=== PATIENT | male | born 1955 | race Caucasian/White ===

== ENCOUNTER 2022-07-15 11:13 | Observation (INO) ==
[2022-07-15] MEDS ORDERED: LORazepam 2 MG/1 ML VIAL ONE ×3 (11:16→11:41)
[2022-07-15] MEDS ORDERED: HALOPERIDOL LACTATE 5 MG/ML 1 ML VIAL ONE ×2 (11:25→11:29)
[2022-07-15] MEDS ORDERED: diphenhydrAMINE 50 MG/ML VIAL ONE (11:25)
[2022-07-15] MEDS ORDERED: KETAMINE HCL INJ 50 MG/ML 10 ML VIAL ONE (11:35)
[2022-07-15] MEDS ORDERED: LORazepam 2 MG/1 ML VIAL IV STA ×2 (11:38→12:53)
[2022-07-15] MEDS ORDERED: SODIUM CHLORIDE 0.9% 1000ML 1,000 ML IV SCH (11:45)
[2022-07-15] MEDS ORDERED: RAPID SEQUENCE INDUCTION BAG ONE (11:47)
[2022-07-15] MEDS ORDERED: STAT IV Infusion **Titration per Protocol STA (12:09)
[2022-07-15 12:13] LABS: Basophils # (auto) 0.03 K/uL (0-0.2); Basophils % (auto) 0.4 %; Eosinophils # (auto) 0.02 K/uL (0-0.50); Eosinophils % (auto) 0.3 %; Hematocrit (blood only) 42.4 % (40.1-51.0); Hemoglobin 14.9 g/dl (14.0-18.0); Immature Granulocytes # (auto) 0.03 K/uL (0.00-0.02); Immature Granulocytes % (auto) 0.4 %; Lymphocytes % (auto) 20.8 %; Mean Corpuscular Hemoglobin 30.5 pg (25.0-34.0); Mean Corpuscular Hgb Conc 35.1 g/dL (32.0-36.0); Mean Corpuscular Volume 86.7 fL (80.0-100.0); Mean Platelet Volume 9.2 fL (9.4-12.4); Monocytes # (auto) 0.57 K/uL (0.24-0.82); Monocytes % (auto) 7.9 %; Neutrophils # (auto) 5.05 K/uL (1.4-6.5); Neutrophils % (auto) 70.2 %; Platelet Count 262 K/uL (130-400); RDW Standard Deviation 40.8 fL (36.4-46.3); Red Blood Count 4.89 M/uL (4.63-6.08)
--- NOTE | 2022-07-15 12:16 | XRay Report ---
XR chest 1V portable supine CLINICAL HISTORY: Altered mental status. COMPARISON STUDY: No previous studies for comparison. FINDINGS: Tip of endotracheal tube is 7 mm above the bora. The tube could be withdrawn 2 cm. No pne umothorax is identified on supine exam. No consolidation. Mediastinal contours are within normal limi ts on supine exam. Pulmonary vascular congestion without overt pulmonary edema. IMPRESSION: 1. Tip of endotracheal tube 7 mm above the bora. The tube could be withdrawn 2 cm. 2. Pulmonary vascular congestion without overt pulmonary edema. ACT 112: Negative or not required by law. Electronically signed by: Zachery Yancey M.D. 07/15/2022 12:13 PM
--- NOTE | 2022-07-15 12:21 | CT Scan Report ---
CT OF THE HEAD WITHOUT CONTRAST CLINICAL HISTORY: Altered mental status. COMPARISON STUDY: No previous studies for comparison. TECHNIQUE: Helical axial images of the head were obtained without IV contrast. Automated exposure con trol was utilized for the study. A dose lowering technique was utilized adhering to the principles o f ALARA. FINDINGS: No acute intracranial hemorrhage, midline shift or mass effect is present. The ventricular system is unremarkable. The basal cisterns are patent. No extra-axial collections are present. There are no findings to suggest acute dural sinus thrombosis or acute territorial infarct. No significant calvarial abnormalities are present. Visualized portions of the sinuses and mastoid air cells are brea ar. Secretions within the nasopharynx are related to intubation. IMPRESSION: No acute intracranial findings. ACT 112: Negative or not required by law. Electronically signed by: Zachery Yancey M.D. 07/15/2022 12:20 PM
--- NOTE | 2022-07-15 12:26 | CT Scan Report ---
CT OF THE CERVICAL SPINE WITHOUT CONTRAST CLINICAL HISTORY: Altered mental status. COMPARISON STUDY: No previous studies for comparison. TECHNIQUE: Helical axial images of the cervical spine were obtained without IV contrast. Sagittal a nd coronal reconstructions were viewed. Automated exposure control was utilized for the study. A do se lowering technique was utilized adhering to the principles of ALARA. FINDINGS: Alignment of the cervical spine is anatomic. Vertebral body heights are maintained. No acut e cervical spine fracture or subluxation is present. There is no prevertebral edema. Facet joints are intact. Endotracheal tube is partially imaged. Moderate multilevel degenerative changes are present . IMPRESSION: No acute cervical spine fracture or subluxation. ACT 112: Negative or not required by law. Electronically signed by: Zachrey Yancey M.D. 07/15/2022 12:24 PM
[2022-07-15] MEDS: propofoL 1,000 MG/100 ML VIAL IV SCH (12:33)
[2022-07-15] MEDS: PROPOFOL BOLUS FROM BAG IV PRN ×5 (12:36→13:51)
--- NOTE | 2022-07-15 12:40 | Emergency Department Note ---
History of Present Illness General Chief complaint: Altered Mental Status Stated complaint: seizure Time Seen by Provider: 07/15/22 11:28 Source: family () History of Present Illness Provider complaint: Altered mental status Onset (ago): hour(s) less than 1 66-year-old female presents emergency department for altered mental status. Wi rian is providing history. reports that the patient and her were walking to the football game today and then all of a sudden he reported he did not suffer loss on the right. She reports he became suddenly confused and started to lower himself to the ground. She denies him hitting his head. She states she helped him lower himself to the ground. She states he was then suddenly confused and a gitated. No tonic-clonic jerking per the . No tongue bite or urinary incontinence per the . She reports no drugs or alcohol. No past medical history per the . No medications. Home Medications Medication Instructions Recorded Confirmed Type No Known Home Medications 07/15/22 07/15/22 History Allergies Allergy/AdvReac Type Severity Reaction Status Date / Time No Known Allergies Allergy Unverified 07/15/22 12:56 Past Med/Surg History Medical History (Updated 07/15/22 @ 18:46 by Aris Parrish) No pertinent past medical history Seizure Surgical History No pertinent past surgical history Family History Son Brain malignancy Social History Smoking Status: Never smoker Hx Alcohol Use: Yes Alcohol type: beer Hx Substance Use: Yes Last Used Substance: Unknown Substance Use Type Other:: per report Preferred Language: Estonian Tag Writer Required: No Current Living Situation: Spouse Feels Safe at Home: Yes Assistive Devices: None Review of Systems Unobtainable due to cognitive status Physical Exam Vital Signs Vital Signs - 24 hr 07/15/22 11:34 07/15/22 12:26 07/15/22 12:19 Temperature 35.7 C L Temperature Source Rectal Pulse Rate 87 77 Pulse Rate from SpO2 Sensor Pulse Rhythm Regular Pulse Strength Normal Respiratory Rate 18 23 Respiratory Effort / Characteristics Non-Labored Spontaneous Respiratory Depth Normal Respiratory Pattern Regular Blood Pressure 121/68 Blood Pressure Mean 85 Blood Pressure Position Sitting Pulse Oximetry 100 94 Oxygen Delivery Method Mechanical Vent Fraction of Inspired Oxygen 60 40 SaO2/FiO2 Ratio 235 Sepsis Recent Fever Within 48 Hours No No Sepsis New/Unexplained Change in Mental Status N/A Yes Sepsis Action Taken by Nursing No Action Required Physician Notified End-Tidal CO2 07/15/22 12:24 07/15/22 12:27 07/15/22 12:27 Temperature Temperature Source Pulse Rate 80 85 Pulse Rate from SpO2 Sensor 80 84 Pulse Rhythm Pulse Strength Respiratory Rate 18 18 Respiratory Effort / Characteristics Respiratory Depth Respiratory Pattern Blood Pressure 104/70 Blood Pressure Mean 81 Blood Pressure Position Pulse Oximetry 100 100 Oxygen Delivery Method Mechanical Vent Mechanical Vent Mechanical Vent Fraction of Inspired Oxygen SaO2/FiO2 Ratio Sepsis Recent Fever Within 48 Hours Sepsis New/Unexplained Change in Mental Status Sepsis Action Taken by Nursing End-Tidal CO2 36 35 07/15/22 12:30 07/15/22 12:30 07/15/22 12:40 Temperature Temperature Source Pulse Rate 88 86 Pulse Rate from SpO2 Sensor 88 87 Pulse Rhythm Pulse Strength Respiratory Rate 18 18 Respiratory Effort / Characteristics Respiratory Depth Respiratory Pattern Blood Pressure 102/71 Blood Pressure Mean 81 Blood Pressure Position Pulse Oximetry 100 96 Oxygen Delivery Method Mechanical Vent Mechanical Vent Mechanical Vent Fraction of Inspired Oxygen SaO2/FiO2 Ratio Sepsis Recent Fever Within 48 Hours Sepsis New/Unexplained Change in Mental Status Sepsis Action Taken by Nursing End-Tidal CO2 36 38 07/15/22 12:45 07/15/22 12:45 07/15/22 12:50 Temperature Temperature Source Pulse Rate 92 H 95 H Pulse Rate from SpO2 Sensor 92 H 95 H Pulse Rhythm Pulse Strength Respiratory Rate 21 21 Respiratory Effort / Characteristics Respiratory Depth Respiratory Pattern Blood Pressure 102/71 Blood Pressure Mean 81 Blood Pressure Position Pulse Oximetry 95 95 Oxygen Delivery Method Mechanical Vent Mechanical Vent Mechanical Vent Fraction of Inspired Oxygen SaO2/FiO2 Ratio Sepsis Recent Fever Within 48 Hours Sepsis New/Unexplained Change in Mental Status Sepsis Action Taken by Nursing End-Tidal CO2 35 33 07/15/22 13:00 07/15/22 13:01 07/15/22 13:01 Temperature Temperature Source Pulse Rate 85 90 Pulse Rate from SpO2 Sensor 86 91 H Pulse Rhythm Pulse Strength Respiratory Rate Respiratory Effort / Characteristics Respiratory Depth Respiratory Pattern Blood Pressure 112/89 Blood Pressure Mean 96 Blood Pressure Position Pulse Oximetry 94 100 Oxygen Delivery Method Mechanical Vent Mechanical Vent Mechanical Vent Fraction of Inspired Oxygen SaO2/FiO2 Ratio Sepsis Recent Fever Within 48 Hours Sepsis New/Unexplained Change in Mental Status Sepsis Action Taken by Nursing End-Tidal CO2 52 Physical Exam GENERAL: Patient is thrashing around the bed screaming trying to bite staff and try to hit staff. HENT: Exam performed. - Head: Normocephalic and atraumatic. - Right Ear: External ear normal. No mastoid tenderness. - Left Ear: External ear normal. No mastoid tenderness. - Mouth/Throat: The oropharynx is clear and moist. No trismus in the jaw. No dental abscesses or uvula swelling. No oropharyngeal exudate or tonsillar abscesses. EYES: Conjunctivae and EOM are normal. Pupils are equal, round, and reactive to light. Right eye exhibits no discharge. Left eye exhibits no discharge. No scleral icterus. NECK: Normal range of motion.No JVD present. CV: Tachycardic rate, regular rhythm, normal heart sounds and intact distal pulses. There is no peripheral edema. Palpable radial pulses bue. PULM/CHEST: Rhonchi bilaterally. ABD: The abdomen is soft. NEURO: Motor and sensation grossly intact. SKIN: Diaphoretic. Procedures Intubation sedative: Versed paralytic: Rocuronium Mg Given: 70 Laryngoscope: other (glide scope) ET Tube Size: 7.5 ET Tube Uncuffed: Yes Tube Secured Depth (cm): 26 Tube Secured Location: lips Tube Placement Confirmation: visualized tube passing through cords, equal breath sounds bilaterally, no breath sounds over epigastrium and confirmation by capnometry Patient Tolerated Procedure: well Additional Comments: ETT was pulled back 2 cm after reviewing on post intubation chest x-ray Course Course 1128: The patient was evaluated in room B4. A complete history and physical exam was performed Cardiac monitoring: An order was placed for continuous cardiac monitoring. The monitor shows a rate of 110 with sinus tachycardia rhythm Patient is thrashing in the bed screaming trying to bite staff. Patient was attempted to be down with multiple doses of IM Ativan, multiple doses of IM Haldol, and IM Benadryl. None of this seemed to calm the patient down the patient was still severely agitated trying to break through four-point restraints and trying to bite staff. Patient was diaphoretic. Given the sudden onset of the patient's symptoms as reported per the there is high concern for intracerebral hemorrhage. Decision was made to intubate the patient for safety and to secure his airway prior to CT scan or rule out intracerebral hemorrhage. See procedure note. 1239: Patient is sedated on propofol and intubated. CT of the head viewed by me is within normal limits 1315: Vital signs stable on ventilator. CT of the head and C-spine within normal limits. Alcohol negative. Patient was evaluated by Dr. Max ICU at bedside. He states he will admit the patient to the ICU and obtain a stat EEG as well as MRI. Dr. Huffman [facility] hospitalist team was made aware. Administered Medications Propofol (Diprivan) 1,000 mg in 100 mls @ 4.14 mls/hr IV .Q24H MARIA D; Protocol Stop: 07/18/22 12:14 Last Titration: 07/15/22 16:35 Dose: 0 mcg/kg/min, 0 mls/hr Documented By: Titration: 07/15/22 16:21 Dose: 10 mcg/kg/min, 4.1 mls/hr Documented By: Titration: 07/15/22 16:15 Dose: 20 mcg/kg/min, 8.3 mls/hr Documented By: Titration: 07/15/22 16:00 Dose: 25 mcg/kg/min, 10.4 mls/hr Documented By: Titration: 07/15/22 15:50 Dose: 30 mcg/kg/min, 12.4 mls/hr Documented By: Titration: 07/15/22 15:42 Dose: 35 mcg/kg/min, 14.5 mls/hr Documented By: Titration: 07/15/22 15:10 Dose: 40 mcg/kg/min, 16.6 mls/hr Documented By: Titration: 07/15/22 14:23 Dose: 44.93 mcg/kg/min, 18.6 mls/hr Documented By: Titration: 07/15/22 13:57 Dose: 35.99 mcg/kg/min, 14.9 mls/hr Documented By: Titration: 07/15/22 13:28 Dose: 30 mcg/kg/min, 12.4 mls/hr Documented By: Titration: 07/15/22 13:06 Dose: 25 mcg/kg/min, 10.4 mls/hr Documented By: Admin: 07/15/22 12:33 Dose: 20 mcg/kg/min, 8.3 mls/hr Documented By: HARRISON Co-signed By: RUTH Sodium Chloride (Nss 1000ml) 1,000 mls @ 80 mls/hr IV .[id number] MARIA D Stop: 08/14/22 15:08 Last Admin: 07/15/22 15:18 Dose: 80 mls/hr Documented By: KELLI Miscellaneous (Icu Electrolyte Replacement Protocol) 1 each N/A BID@,18 [facility]; Protocol Stop: 07/22/22 17:59 Last Admin: 07/15/22 18:41 Dose: 1 each Documented By: KELLI Propofol (Propofol Bolus From Bag) 20 mg IV Q5M PRN PRN Reason: Sedation Stop: 07/18/22 12:14 Last Admin: 07/15/22 13:51 Dose: 20 mg Documented By: RUTH Co-signed By: STEVIE Admin: 07/15/22 13:28 Dose: 20 mg Documented By: RUTH Co-signed By: HARRISON Admin: 07/15/22 13:01 Dose: 20 mg Documented By: HARRISON Co-signed By: RUTH Admin: 07/15/22 12:48 Dose: 20 mg Documented By: HARRISON Co-signed By: RUTH Admin: 07/15/22 12:36 Dose: 20 mg Documented By: HARRISON Co-signed By: RUTH Discontinued Medications Diphenhydramine HCl (Diphenhydramine 50 Mg/Ml Vial) Confirm Administered Dose 50 mg .ROUTE .STK-MED ONE Stop: 07/15/22 11:26 Last Admin: 07/15/22 11:20 Dose: 50 mg Documented By: ELIE Fentanyl Citrate (Fentanyl Citrate 100 Mcg/2 Ml Vial) 25 mcg IV Q30M PRN PRN Reason: Agitation Stop: 07/29/22 13:18 Last Admin: 07/15/22 14:50 Dose: 25 mcg Documented By: Admin: 07/15/22 13:25 Dose: 25 mcg Documented By: RUTH Gadobutrol (Gadobutrol 65ml Vial) 6 ml IV ONCE ONE Stop: 07/15/22 14:55 Last Admin: 07/15/22 14:36 Dose: 6 ml Documented By: GABRIELA Haloperidol Lactate (Haloperidol Lactate 5 Mg/Ml 1 Ml Vial) Confirm Administered Dose 5 mg .ROUTE .STK-MED ONE Stop: 07/15/22 11:26 Last Admin: 07/15/22 11:20 Dose: 5 mg Documented By: ELIE Haloperidol Lactate (Haloperidol Lactate 5 Mg/Ml 1 Ml Vial) Confirm Administered Dose 5 mg .ROUTE .STK-MED ONE Stop: 07/15/22 11:30 Last Admin: 07/15/22 11:37 Dose: 5 mg Documented By: ELIE Sodium Chloride (Nss 1000ml) 1,000 mls @ 999 mls/hr IV .Q1H1M MARIA D Stop: 07/15/22 12:45 Last Infusion: 07/15/22 14:57 Dose: 0 mls/hr Documented By: Admin: 07/15/22 12:34 Dose: 125 mls/hr Documented By: HARRISON Ketamine HCl (Ketamine Hcl Inj 50 Mg/Ml 10 Ml Vial) Confirm Administered Dose 500 mg .ROUTE .STK-MED ONE Stop: 07/15/22 11:36 Last Admin: 07/15/22 12:56 Dose: Not Given Documented By: HARRISON Lorazepam (Lorazepam 2 Mg/1 Ml Vial) Confirm Administered Dose 2 mg .ROUTE .STK- MED ONE Stop: 07/15/22 11:17 Last Admin: 07/15/22 11:15 Dose: 2 mg Documented By: ELIE Lorazepam (Lorazepam 2 Mg/1 Ml Vial) Confirm Administered Dose 4 mg .ROUTE .STK- MED ONE Stop: 07/15/22 11:36 Last Admin: 07/15/22 11:50 Dose: 4 mg Documented By: ELIE Lorazepam (Lorazepam 2 Mg/1 Ml Vial) 2 mg IV NOW STA; Protocol Stop: 07/15/22 11:39 Last Admin: 07/15/22 11:50 Dose: 2 mg Documented By: ELIE Lorazepam (Lorazepam 2 Mg/1 Ml Vial) Confirm Administered Dose 2 mg .ROUTE .STK- MED ONE Stop: 07/15/22 11:42 Last Admin: 07/15/22 11:51 Dose: Not Given Documented By: ELIE Lorazepam (Lorazepam 2 Mg/1 Ml Vial) 1 mg IV NOW STA; Protocol Stop: 07/15/22 12:54 Last Admin: 07/15/22 12:55 Dose: 1 mg Documented By: HARRISON Miscellaneous (Rapid Sequence Induction Bag) Confirm Administered Dose 1 each .ROUTE .STK-MED ONE Stop: 07/15/22 11:48 Last Admin: 07/15/22 12:55 Dose: 1 each Documented By: HARRISON Gonzalez (Stat Iv Infusion Titration Per Protocol) 1 each N/A NOW STA Stop: 07/15/22 12:10 Last Admin: 07/15/22 16:10 Dose: Not Given Documented By: KELLI Critical Care Time Critical Care Time: Yes Total Critical Care Time: 56 I have personally spent greater than 56 minutes of critical care time in the direct management of this patient. This includes bedside care, interpretation of diagnostic studies, and testing, discussion with consultants, patient, and family members, and other required patient management activities. This 56 minutes is in excess of all separately billable procedures. Medical Decision Making Laboratory Data Result diagrams: 07/15/22 11:59 07/15/22 15:54 Lab Results 07/15/22 07/15/22 07/15/22 Range/Units 11:59 11:59 11:59 WBC 7.20 (4.8-10.8) K/ul RBC 4.89 (4.63-6.08) M/uL Hgb 14.9 (14.0-18.0) g/dl Hct 42.4 (40.1-51.0) % MCV 86.7 (80.0-100.0) fL MCH 30.5 (25.0-34.0) pg MCHC 35.1 (32.0-36.0) g/dL RDW Std Deviation 40.8 (36.4-46.3) fL RDW Coeff of Melita 13.0 (11.5-14.5) % Plt Count 262 (130-400) K/uL MPV 9.2 L (9.4-12.4) fL Immature Gran % (Auto) 0.4 % Neut % (Auto) 70.2 % Lymph % (Auto) 20.8 % [place] % (Auto) 7.9 % Eos % (Auto) 0.3 % Baso % (Auto) 0.4 % Neut # (Auto) 5.05 (1.4-6.5) K/uL Lymph # (Auto) 1.50 (1.2-3.4) K/uL [place] # (Auto) 0.57 (0.24-0.82) K/uL Eos # (Auto) 0.02 (0-0.50) K/uL Baso # (Auto) 0.03 (0-0.2) K/uL Immature Gran # (Auto) 0.03 H (0.00-0.02) K/uL VBG pH (7.36-7.41) VBG pCO2 (38-50) mmHg VBG pO2 mmHg VBG HCO3 mmol/L VBG O2 Saturation % VBG Base Excess mEq/L Sodium 139 (136-145) mmol/L Potassium 3.0 L (3.5-5.1) mmol/L Chloride 102 (98-107) mmol/L Carbon Dioxide 17 L (21-32) mmol/L Anion Gap 20 H (3-11) BUN 20 (6-23) mg/dl Creatinine 1.42 H (0.6-1.4) mg/dl Est Cr Clr Drug Dosing 50.6 ml/min Est GFR ( Amer) 59.6 ml/min Est GFR (Non-Af Amer) 51.5 ml/min BUN/Creatinine Ratio 14.1 (10-20) Glucose 175 H (70-99(Fasting)) mg/dl Calcium 9.3 (8.5-10.1) mg/dl Total Bilirubin 1.2 H (0.2-1.0) mg/dl AST 22 (13-39) U/L ALT 15 (7-52) U/L Alkaline Phosphatase 78 (34-104) U/L Total Protein 7.6 (6.0-8.3) gm/dl Albumin 4.5 (3.4-5.0) gm/dl Globulin 3.1 (2.5-4.0) gm/dl Albumin/Globulin Ratio 1.5 (0.9-2) TSH 3.312 (0.300-4.500) uIu/ml Prolactin ng/ml Urine Color Urine Appearance (Clear) Urine pH (4.5-7.5) Ur Specific [place] (1.000-1.030) Urine Protein (Negative) Urine Glucose (UA) (Negative) Urine Ketones (Negative) Urine Blood (Negative) Urine Nitrite (Negative) Urine Bilirubin (Negative) Urine Urobilinogen (Negative) Ur Leukocyte Esterase (Negative) Urine WBC (Auto) (0-5) /hpf Urine RBC (Auto) (0-4) /hpf U Hyaline Cast (Auto) (0-5) /lpf U Epithel Cells (Auto) (0-5) /lpf Urine Bacteria (Auto) (Negative) Salicylates (3.0-30) mg/dl Urine Opiates Screen (Neg) Ur Methadone, Qual (Neg) Acetaminophen (10-30) ug/ml Urine Barbiturates (Neg) Ur Phencyclidine (PCP) (Neg) U Amphetamin/Meth Scrn (Neg) MDMA (Ecstasy) Screen (Neg) U Benzodiazepines Scrn (Neg) Ur Cocaine Metabolite (Neg) U Marijuana (THC) Screen (Neg) Ethyl Alcohol mg/dL (<10.0) mg/dl SARS-CoV-2, RNA, NAAT (NEGATIVE) 07/15/22 07/15/22 07/15/22 Range/Units 11:59 11:59 11:59 WBC (4.8-10.8) K/ul RBC (4.63-6.08) M/uL Hgb (14.0-18.0) g/dl Hct (40.1-51.0) % MCV (80.0-100.0) fL MCH (25.0-34.0) pg MCHC (32.0-36.0) g/dL RDW Std Deviation (36.4-46.3) fL RDW Coeff of Melita (11.5-14.5) % Plt Count (130-400) K/uL MPV (9.4-12.4) fL Immature Gran % (Auto) % Neut % (Auto) % Lymph % (Auto) % [place] % (Auto) % Eos % (Auto) % Baso % (Auto) % Neut # (Auto) (1.4-6.5) K/uL Lymph # (Auto) (1.2-3.4) K/uL [place] # (Auto) (0.24-0.82) K/uL Eos # (Auto) (0-0.50) K/uL Baso # (Auto) (0-0.2) K/uL Immature Gran # (Auto) (0.00-0.02) K/uL VBG pH (7.36-7.41) VBG pCO2 (38-50) mmHg VBG pO2 mmHg VBG HCO3 mmol/L VBG O2 Saturation % VBG Base Excess mEq/L Sodium (136-145) mmol/L Potassium (3.5-5.1) mmol/L Chloride (98-107) mmol/L Carbon Dioxide (21-32) mmol/L Anion Gap (3-11) BUN (6-23) mg/dl Creatinine (0.6-1.4) mg/dl Est Cr Clr Drug Dosing ml/min Est GFR ( Amer) ml/min Est GFR (Non-Af Amer) ml/min BUN/Creatinine Ratio (10-20) Glucose (70-99(Fasting)) mg/dl Calcium (8.5-10.1) mg/dl Total Bilirubin (0.2-1.0) mg/dl AST (13-39) U/L ALT (7-52) U/L Alkaline Phosphatase (34-104) U/L Total Protein (6.0-8.3) gm/dl Albumin (3.4-5.0) gm/dl Globulin (2.5-4.0) gm/dl Albumin/Globulin Ratio (0.9-2) TSH (0.300-4.500) uIu/ml Prolactin 41.88 ng/ml Urine Color Urine Appearance (Clear) Urine pH (4.5-7.5) Ur Specific [place] (1.000-1.030) Urine Protein (Negative) Urine Glucose (UA) (Negative) Urine Ketones (Negative) Urine Blood (Negative) Urine Nitrite (Negative) Urine Bilirubin (Negative) Urine Urobilinogen (Negative) Ur Leukocyte Esterase (Negative) Urine WBC (Auto) (0-5) /hpf Urine RBC (Auto) (0-4) /hpf U Hyaline Cast (Auto) (0-5) /lpf U Epithel Cells (Auto) (0-5) /lpf Urine Bacteria (Auto) (Negative) Salicylates < 3.0 L (3.0-30) mg/dl Urine Opiates Screen (Neg) Ur Methadone, Qual (Neg) Acetaminophen < 3 L (10-30) ug/ml Urine Barbiturates (Neg) Ur Phencyclidine (PCP) (Neg) U Amphetamin/Meth Scrn (Neg) MDMA (Ecstasy) Screen (Neg) U Benzodiazepines Scrn (Neg) Ur Cocaine Metabolite (Neg) U Marijuana (THC) Screen (Neg) Ethyl Alcohol mg/dL < 10.0 (<10.0) mg/dl SARS-CoV-2, RNA, NAAT (NEGATIVE) 07/15/22 07/15/22 07/15/22 Range/Units 12:28 12:28 12:30 WBC (4.8-10.8) K/ul RBC (4.63-6.08) M/uL Hgb (14.0-18.0) g/dl Hct (40.1-51.0) % MCV (80.0-100.0) fL MCH (25.0-34.0) pg MCHC (32.0-36.0) g/dL RDW Std Deviation (36.4-46.3) fL RDW Coeff of Melita (11.5-14.5) % Plt Count (130-400) K/uL MPV (9.4-12.4) fL Immature Gran % (Auto) % Neut % (Auto) % Lymph % (Auto) % [place] % (Auto) % Eos % (Auto) % Baso % (Auto) % Neut # (Auto) (1.4-6.5) K/uL Lymph # (Auto) (1.2-3.4) K/uL [place] # (Auto) (0.24-0.82) K/uL Eos # (Auto) (0-0.50) K/uL Baso # (Auto) (0-0.2) K/uL Immature Gran # (Auto) (0.00-0.02) K/uL VBG pH (7.36-7.41) VBG pCO2 (38-50) mmHg VBG pO2 mmHg VBG HCO3 mmol/L VBG O2 Saturation % VBG Base Excess mEq/L Sodium (136-145) mmol/L Potassium (3.5-5.1) mmol/L Chloride (98-107) mmol/L Carbon Dioxide (21-32) mmol/L Anion Gap (3-11) BUN (6-23) mg/dl Creatinine (0.6-1.4) mg/dl Est Cr Clr Drug Dosing ml/min Est GFR ( Amer) ml/min Est GFR (Non-Af Amer) ml/min BUN/Creatinine Ratio (10-20) Glucose (70-99(Fasting)) mg/dl Calcium (8.5-10.1) mg/dl Total Bilirubin (0.2-1.0) mg/dl AST (13-39) U/L ALT (7-52) U/L Alkaline Phosphatase (34-104) U/L Total Protein (6.0-8.3) gm/dl Albumin (3.4-5.0) gm/dl Globulin (2.5-4.0) gm/dl Albumin/Globulin Ratio (0.9-2) TSH (0.300-4.500) uIu/ml Prolactin ng/ml Urine Color Yellow Urine Appearance Clear (Clear) Urine pH 5.0 (4.5-7.5) Ur Specific [place] 1.015 (1.000-1.030) Urine Protein 1+ H (Negative) Urine Glucose (UA) Negative (Negative) Urine Ketones Trace H (Negative) Urine Blood 1+ H (Negative) Urine Nitrite Negative (Negative) Urine Bilirubin Negative (Negative) Urine Urobilinogen Negative (Negative) Ur Leukocyte Esterase Negative (Negative) Urine WBC (Auto) 1-5 (0-5) /hpf Urine RBC (Auto) 0-4 (0-4) /hpf U Hyaline Cast (Auto) 10-30 H (0-5) /lpf U Epithel Cells (Auto) >30 H (0-5) /lpf Urine Bacteria (Auto) Negative (Negative) Salicylates (3.0-30) mg/dl Urine Opiates Screen Neg (Neg) Ur Methadone, Qual Neg (Neg) Acetaminophen (10-30) ug/ml Urine Barbiturates Neg (Neg) Ur Phencyclidine (PCP) Neg (Neg) U Amphetamin/Meth Scrn Neg (Neg) MDMA (Ecstasy) Screen Neg (Neg) U Benzodiazepines Scrn Pos H (Neg) Ur Cocaine Metabolite Neg (Neg) U Marijuana (THC) Screen Pos H (Neg) Ethyl Alcohol mg/dL (<10.0) mg/dl SARS-CoV-2, RNA, NAAT NEGATIVE (NEGATIVE) 07/15/22 Range/Units 13:01 WBC (4.8-10.8) K/ul RBC (4.63-6.08) M/uL Hgb (14.0-18.0) g/dl Hct (40.1-51.0) % MCV (80.0-100.0) fL MCH (25.0-34.0) pg MCHC (32.0-36.0) g/dL RDW Std Deviation (36.4-46.3) fL RDW Coeff of Melita (11.5-14.5) % Plt Count (130-400) K/uL MPV (9.4-12.4) fL Immature Gran % (Auto) % Neut % (Auto) % Lymph % (Auto) % [place] % (Auto) % Eos % (Auto) % Baso % (Auto) % Neut # (Auto) (1.4-6.5) K/uL Lymph # (Auto) (1.2-3.4) K/uL [place] # (Auto) (0.24-0.82) K/uL Eos # (Auto) (0-0.50) K/uL Baso # (Auto) (0-0.2) K/uL Immature Gran # (Auto) (0.00-0.02) K/uL VBG pH 7.29 L (7.36-7.41) VBG pCO2 47 (38-50) mmHg VBG pO2 69 mmHg VBG HCO3 23 mmol/L VBG O2 Saturation 94.2 % VBG Base Excess -4.2 mEq/L Sodium (136-145) mmol/L Potassium (3.5-5.1) mmol/L Chloride (98-107) mmol/L Carbon Dioxide (21-32) mmol/L Anion Gap (3-11) BUN (6-23) mg/dl Creatinine (0.6-1.4) mg/dl Est Cr Clr Drug Dosing ml/min Est GFR ( Amer) ml/min Est GFR (Non-Af Amer) ml/min BUN/Creatinine Ratio (10-20) Glucose (70-99(Fasting)) mg/dl Calcium (8.5-10.1) mg/dl Total Bilirubin (0.2-1.0) mg/dl AST (13-39) U/L ALT (7-52) U/L Alkaline Phosphatase (34-104) U/L Total Protein (6.0-8.3) gm/dl Albumin (3.4-5.0) gm/dl Globulin (2.5-4.0) gm/dl Albumin/Globulin Ratio (0.9-2) TSH (0.300-4.500) uIu/ml Prolactin ng/ml Urine Color Urine Appearance (Clear) Urine pH (4.5-7.5) Ur Specific [place] (1.000-1.030) Urine Protein (Negative) Urine Glucose (UA) (Negative) Urine Ketones (Negative) Urine Blood (Negative) Urine Nitrite (Negative) Urine Bilirubin (Negative) Urine Urobilinogen (Negative) Ur Leukocyte Esterase (Negative) Urine WBC (Auto) (0-5) /hpf Urine RBC (Auto) (0-4) /hpf U Hyaline Cast (Auto) (0-5) /lpf U Epithel Cells (Auto) (0-5) /lpf Urine Bacteria (Auto) (Negative) Salicylates (3.0-30) mg/dl Urine Opiates Screen (Neg) Ur Methadone, Qual (Neg) Acetaminophen (10-30) ug/ml Urine Barbiturates (Neg) Ur Phencyclidine (PCP) (Neg) U Amphetamin/Meth Scrn (Neg) MDMA (Ecstasy) Screen (Neg) U Benzodiazepines Scrn (Neg) Ur Cocaine Metabolite (Neg) U Marijuana (THC) Screen (Neg) Ethyl Alcohol mg/dL (<10.0) mg/dl SARS-CoV-2, RNA, NAAT (NEGATIVE) Imaging Data Radiologist's Impression: Head CT 07/15/22 11:36 CT OF THE HEAD WITHOUT CONTRAST CLINICAL HISTORY: Altered mental status. COMPARISON STUDY: No previous studies for comparison. TECHNIQUE: Helical axial images of the head were obtained without IV contrast. Automated exposure control was utilized for the study. A dose lowering technique was utilized adhering to the principles of ALARA. FINDINGS: No acute intracranial hemorrhage, midline shift or mass effect is present. The ventricular system is unremarkable. The basal cisterns are patent. No extra-axial collections are present. There are no findings to suggest acute dural sinus thrombosis or acute territorial infarct. No significant calvarial abnormalities are present. Visualized portions of the sinuses and mastoid air cells are clear. Secretions within the nasopharynx are related to intubation. IMPRESSION: No acute intracranial findings. ACT 112: Negative or not required by law. Electronically signed by: Zachery Yancey M.D. 07/15/2022 12:20 PM Chest X-Ray 07/15/22 11:37 XR chest 1V portable supine CLINICAL HISTORY: Altered mental status. COMPARISON STUDY: No previous studies for comparison. FINDINGS: Tip of endotracheal tube is 7 mm above the bora. The tube could be withdrawn 2 cm. No pneumothorax is identified on supine exam. No consolidation. Mediastinal contours are within normal limits on supine exam. Pulmonary vascular congestion without overt pulmonary edema. IMPRESSION: 1. Tip of endotracheal tube 7 mm above the bora. The tube could be withdrawn 2 cm. 2. Pulmonary vascular congestion without overt pulmonary edema. ACT 112: Negative or not required by law. Electronically signed by: Zachery Yancey M.D. 07/15/2022 12:[address] 07/15/22 12:04 CT OF THE CERVICAL SPINE WITHOUT CONTRAST CLINICAL HISTORY: Altered mental status. COMPARISON STUDY: No previous studies for comparison. TECHNIQUE: Helical axial images of the cervical spine were obtained without IV contrast. Sagittal and coronal reconstructions were viewed. Automated exposure control was utilized for the study. A dose lowering technique was utilized ad phill to the principles of ALARA. FINDINGS: Alignment of the cervical spine is anatomic. Vertebral body heights are maintained. No acute cervical spine fracture or subluxation is present. There is no prevertebral edema. Facet joints are intact. Endotracheal tube is partially imaged. Moderate multilevel degenerative changes are present. IMPRESSION: No acute cervical spine fracture or subluxation. ACT 112: Negative or not required by law. Electronically signed by: Zachery Yancey M.D. 07/15/2022 12:24 PM Brain MRI 07/15/22 13:07 MRI OF THE BRAIN WITHOUT AND WITH IV CONTRAST SEIZURE PROTOCOL CLINICAL HISTORY: new onset seizure COMPARISON STUDY: Head CT performed earlier today. TECHNIQUE: Utilizing a 1.5 Angie magnet and dedicated coil, multiplanar, multiecho imaging of the brain was performed pre and postcontrast administration. IV administration of 6 mL of Gadavist contrast was uneventful. Thin cut coronal T2 imaging was performed according to seizure protocol. FINDINGS: There are are no foci of restricted diffusion to suggest acute infarct. No acute intracranial hemorrhage, midline shift or mass effect is present. Brain volume is normal. Ventricular system is normal. Basal cisterns are patent. There are no extra-axial collections. Flow-voids for the major intracranial vessels are present. There is no intracranial mass or pathologic enhancement. No significant parenchymal signal abnormality is identified. Mesial temporal lobes are unremarkable. Flow-voids for the major intracranial vessels are present. Secretions within the nasopharynx are related to intubation. IMPRESSION: Unremarkable MRI of the brain. No acute findings. No intracranial mass or pathologic enhancement. ACT 112: Negative or not required by law. Electronically signed by: Zachery Yancey M.D. 07/15/2022 3:15 PM ECG Data Indication: + altered mental status Rate (beats per minute): 91 Rhythm: + normal sinus ECG Intervals/blocks: + Normal QRS, + Normal IN and + Normal QT-c ECG ST segments: + Normal ST segments MDM Narrative 1128: The patient was evaluated in room B4. A complete history and physical exam was performed Cardiac monitoring: An order was placed for continuous cardiac monitoring. The monitor shows a rate of 110 with sinus tachycardia rhythm Patient is thrashing in the bed screaming trying to bite staff. Patient was attempted to be down with multiple doses of IM Ativan, multiple doses of IM Haldol, and IM Benadryl. None of this seemed to calm the patient down the patient was still severely agitated trying to break through four-point restraints and trying to bite staff. Patient was diaphoretic. Given the sudden onset of the patient's symptoms as reported per the there is high concern for intracerebral hemorrhage. Decision was made to intubate the patient for s afety and to secure his airway prior to CT scan or rule out intracerebral hemorrhage. See procedure note. 1239: Patient is sedated on propofol and intubated. CT of the head viewed by me is within normal limits 1315: Vital signs stable on ventilator. CT of the head and C-spine within normal limits. Alcohol negative. Patient was evaluated by Dr. Max ICU at bedside. He states he will admit the patient to the ICU and obtain a stat EEG as well as MRI. Dr. Huffman [facility] hospitalist team was made aware. Impression & Plan Altered mental status, unspecified Discharge Plan Visit Data Chief Complaint: Altered Mental Status Stated Complaint: seizure ED Provider: Aris Parirsh Discharge Problem: Altered mental status, unspecified Patient Disposition: Admitted As Inpatient Discharge Instructions Interventions: ED Discharge Assessment Last Done: 07/15/22 14:37
[2022-07-15 12:41] LABS: Albumin Globulin Ratio 1.5 (0.9-2); Albumin Level 4.5 gm/dl (3.4-5.0); BUN Creatinine Ratio 14.1 (10-20); Bilirubin,Total 1.2 mg/dl (0.2-1.0); Calcium 9.3 mg/dl (8.5-10.1); Creatinine Clr Calc Pharmacy 50.6 ml/min; Est GFR (African American) 59.6 ml/min; Est GFR (Non-African American) 51.5 ml/min; Globulin 3.1 gm/dl (2.5-4.0); Total Protein 7.6 gm/dl (6.0-8.3)
[2022-07-15 12:42] LABS: Acetaminophen < 3 ug/ml (10-30); Salicylate < 3.0 mg/dl (3.0-30)
[2022-07-15 12:49] LABS: Appearance Urine Clear (Clear); Bacteria Urine Automated Negative (Negative); Bilirubin Urine Negative (Negative); Blood Urine 1+ (Negative); Color Urine Yellow; Epithelial Cell Urine Auto >30 /lpf (0-5); Glucose Urine UA Negative (Negative); Ketones Urine Trace (Negative); Leukocyte Esterase Urine Negative (Negative); Nitrite Urine Negative (Negative); Protein Urine 1+ (Negative); RBC Urine Automated 0-4 /hpf (0-4); Specific Gravity Urine 1.015 (1.000-1.030); Urobilinogen Urine Negative (Negative)
[2022-07-15 13:12] LABS: Base Excess VBG -4.2 mEq/L; HCO3 VBG 23 mmol/L; Oxygen Saturation VBG 94.2 %; PCO2 VBG 47 mmHg (38-50); PO2 VBG 69 mmHg; pH VBG 7.29 (7.36-7.41)
[2022-07-15] MEDS: fentaNYL citrate 100 MCG/2 ML VIAL IV PRN ×2 (13:25→14:50)
[2022-07-15 13:29] LABS: Amphetamines+Metham, Urine Neg (Neg); Barbiturates, Urine Neg (Neg); Benzodiazepine, Urine Pos (Neg); Cocaine, Urine Neg (Neg); MDMA (Ecstacy), Urine Neg (Neg); Methadone, Urine Neg (Neg); Opiate, Urine Neg (Neg); Phencyclidine, Urine Neg (Neg)
--- NOTE | 2022-07-15 13:33 | History & Physical Report ---
Date of Service July 15, 2022 Assessment & Plan (1) Seizure: Plan: First episode. No family hx of seizure, though son did pass away from a brain tumor (unk type). - Intubated in ER for combativeness, then airway protection -> Admit to ICU - MRI brain seizure protocol - UDS pending - EEG pending - Seizure precautions - Discussed with ICU attending (2) DVT prophylaxis: Plan: Heparin 5,000 units SQ Q12h History of Present Illness Primary Care Provider: NO PCP 66yo M w/ no major PMH who presents with likely seizure. Patient is intubated and heavily sedated, so we have no information from him, but his reports that he was in his normal state of health today. They were walking toward the stadium [place] the [place], and he reported that he smelled something. His asked if he wanted to sit down, and he said no, that they should get to their seats. However, he then took a few more steps and started to fall to the ground. She lowered him slowly to the ground (does not appear to have struck his head), and within a few seconds, he had about 1 minute's worth of generalized tonic/clonic behavior. When EMS arrived, he was awake, calm, but confused. In the ambulance to the hospital, he had an IV inserted and became very combative and aggressive. In the ER, he was given Ativan, Haldol, and Benadryl and then intubated for airway protection. Allergies Allergy/AdvReac Type Severity Reaction Status Date / Time No Known Allergies Allergy Unverified 07/15/22 12:56 Home Medications Medication Instructions Recorded Confirmed Type No Known Home Medications 07/15/22 07/15/22 History Past Med/Surg History Medical History (Updated 07/15/22 @ 13:29 by Miguel Huffman MD) No pertinent past medical history Seizure Surgical History No pertinent past surgical history Family History Son Brain malignancy Social History Smoking Status: Unknown if ever smoked Feels Safe at Home: Yes Review of Systems Review of Systems: Unobtainable due to cognitive status and Unobtainable due to endotracheal tube Physical Exam Constitutional: WD/WN, vitals as above + acute distress Eyes: no conjunctival abnormality and + EOM not intact (Cannot do, due to intubation/sedation) ENMT: external ear and nose normal, oropharynx normal Neck: trachea midline, no thyromegaly normal visual inspection Respiratory: normal respiratory effort, lungs clear to auscultation no respiratory distress Intubated Cardiovascular: RRR, no murmur, no edema Gastrointestinal (Abdomen): Inspection/Auscultation: abdomen normal to inspection; abdomen not distended Percussion/Palpation: abdomen soft; abdomen nontender, no guarding and abdomen not rigid Musculoskeletal: No gross MSK deformities noted. Skin: no rashes, warm and dry Neurologic: + does not move all extremities and + not awake Psychiatric: Orientation: + not alert and + uncooperative Results & Data Results & Data ([facility]) Vital Signs (Past 12 Hours) Vital Signs Temp Pulse Resp BP Pulse Ox O2 Del Method FiO2 07/15/22 12:19 35.7 C L 77 23 121/68 94 Mechanical Vent 40 07/15/22 12:26 87 18 100 60 Code Status & VTE Plan VTE Prophylaxis Plan VTE Prophylaxis will be ordered: Yes PG Care Time/CCT Total # of Minutes Spent Total Time Spent with Patient: Total time spent is greater than 50% in coordination of care (as documented) at patient's floor/unit and/or counseling patient: Coding Level of Care Code 54076 Initial Inpt Care Lvl 3 Diagnoses Seizure R56.9 DVT prophylaxis Z29.9
[2022-07-15] MEDS ORDERED: GADOBUTROL 65ML VIAL IV ONE (14:54)
[2022-07-15] MEDS ORDERED: ONDANSETRON INJ 2 MG/ML 2 ML VIAL IV PRN (15:09)
[2022-07-15] MEDS ORDERED: ICU PROTOCOL FOR HYPERGLYCEMIA PRN (15:09)
[2022-07-15] MEDS ORDERED: fentaNYL citrate 100 MCG/2 ML VIAL IV PRN (15:09)
[2022-07-15] MEDS ORDERED: ROCURONIUM BROMIDE 10 MG/ML 5 ML VIAL IV ONE (15:12)
[2022-07-15] MEDS ORDERED: MIDAZOLAM HCL 5 MG/ML VIAL IV ONE (15:12)
--- NOTE | 2022-07-15 15:17 | Magnetic Resonance Report ---
MRI OF THE BRAIN WITHOUT AND WITH IV CONTRAST SEIZURE PROTOCOL CLINICAL HISTORY: new onset seizure COMPARISON STUDY: Head CT performed earlier today. TECHNIQUE: Utilizing a 1.5 Angie magnet and dedicated coil, multiplanar, multiecho imaging of the br ain was performed pre and postcontrast administration. IV administration of 6 mL of Gadavist contras t was uneventful. Thin cut coronal T2 imaging was performed according to seizure protocol. FINDINGS: There are are no foci of restricted diffusion to suggest acute infarct. No acute intracrani al hemorrhage, midline shift or mass effect is present. Brain volume is normal. Ventricular system is normal. Basal cisterns are patent. There are no extra-axial collections. Flow-voids for the major in tracranial vessels are present. There is no intracranial mass or pathologic enhancement. No significa nt parenchymal signal abnormality is identified. Mesial temporal lobes are unremarkable. Flow-voids f or the major intracranial vessels are present. Secretions within the nasopharynx are related to intub ation. IMPRESSION: Unremarkable MRI of the brain. No acute findings. No intracranial mass or pathologic enh ancement. ACT 112: Negative or not required by law. Electronically signed by: Zachery Yancey M.D. 07/15/2022 3:15 PM
[2022-07-15] MEDS: SODIUM CHLORIDE 0.9% 1000ML 1,000 ML IV SCH (15:18)
--- NOTE | 2022-07-15 15:37 | Critical Care Consultation ---
Date of Consultation July 15, 2022 Assessment & Plan (1) Altered mental status, unspecified: Reason Critically Ill: 66-year-old male without significant past medical history who presents after altered mental status. PLAN: Neuro: Altered mental status -Rule out seizure activity -Unclear significance of marijuana positive on UDS -Hypokalemia associated weakness Resp: Intubation to facilitate medical evaluation -Move towards extubation Fluids/Renal: Elevated serum creatinine -Probable prerenal in origin: Hyaline casts and trace ketones noted on UA -Recheck in a.m. Hypokalemia -Recheck -ICU electrolyte protocol ID: No indication for anti-infectives at this time GI/Nutrition: N.p.o. Heme: DVT prophylaxis: Heparin subcu Endocrine: ICU hyperglycemia protocol Hyperglycemia -Check A1c Vascular access: Peripheral IVs Code Status: Full code Disposition: ICU (2) Elevated serum creatinine: (3) Hypokalemia: (4) Marijuana use: (5) Hyperglycemia: History of Present Illness Reason for Consultation: Possible seizure-like activity. Intubated in presumptive post ictal. To facilitate medical work-up secondary to patient combativeness. Requesting Physician: Miguel Huffman MD Attending Physician: Miguel Huffman MD History of Present Illness Patient is a 66-year-old male without significant past medical history. History is supplied from the patient's . 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 He denies following up with a medical provider regularly. There is no past medical history. Family history is largely unremarkable with the exception that he had a male child at age 15 secondary to a brain tumor. She denies that the patient smokes, he does occasionally drink, there is no reported daily consumption of alcohol and no history of alcohol withdrawal symptoms. Patient had been in his normal state of health and they were walking to the [employer] game which the patient complained of a sudden onset of an abnormal smell and then reported he did not feel well and progressively became weak and was unable to stand, patient's helped lower the patient to the ground. In the emergency department the patient would be intermittently confused and somewhat combative preventing safe medical evaluation. He was intubated to facilitate work-up. CT scan was reviewed which was unremarkable. MRI rule out seizure was reviewed which was unremarkable. EEG has been obtained. Allergies Allergy/AdvReac Type Severity Reaction Status Date / Time No Known Allergies Allergy Unverified 07/15/22 12:56 Home Medications Medication Instructions Recorded Confirmed Type No Known Home Medications 07/15/22 07/15/22 History Patient History Medical History (Updated 07/15/22 @ 15:48 by Oneil Rader DO) No pertinent past medical history Seizure Surgical History No pertinent past surgical history Family History Son Brain malignancy Social History Smoking Status: Unknown if ever smoked Feels Safe at Home: Yes Review of Systems Review of Systems: Unobtainable due to endotracheal tube Physical Exam Physical Exam: General: Sedated. nontoxic. Skin: Warm, dry, Head: Atraumatic Ears, nose, mouth and throat: airway obscured by endotracheal tube Cardiovascular: Normal peripheral perfusion Respiratory: Ventilator settings reviewed Gastrointestinal: Non distended Musculoskeletal: No deformity Results & Data Results & [facility] ([facility]) Vital Signs (Past 12 Hours) Vital Signs Temp Pulse Resp BP Pulse Ox O2 Del Method FiO2 07/15/22 15:32 57 L 18 100 30 07/15/22 15:22 Mechanical Vent 40 07/15/22 15:03 55 L 19 107/70 100 Mechanical Vent 30 07/15/22 15:01 56 L 19 117/72 100 Mechanical Vent 30 07/15/22 14:57 61 19 111/71 100 Mechanical Vent 30 07/15/22 13:30 72 25 H 100 Mechanical Vent 07/15/22 13:30 110/71 Mechanical Vent 07/15/22 13:20 75 18 95 Mechanical Vent 07/15/22 13:15 102/73 Mechanical Vent 07/15/22 13:15 75 18 97 Mechanical Vent 07/15/22 13:10 75 21 100 Mechanical Vent 07/15/22 13:01 112/89 Mechanical Vent 07/15/22 13:01 90 100 Mechanical Vent 07/15/22 13:00 85 94 Mechanical Vent 07/15/22 12:50 95 H 21 95 Mechanical Vent 07/15/22 12:45 102/71 Mechanical Vent 07/15/22 12:45 92 H 21 95 Mechanical Vent 07/15/22 12:40 86 18 96 Mechanical Vent 07/15/22 12:30 88 18 100 Mechanical Vent 07/15/22 12:30 102/71 Mechanical Vent 07/15/22 12:27 85 18 100 Mechanical Vent 07/15/22 12:27 104/70 Mechanical Vent 07/15/22 12:24 80 18 100 Mechanical Vent 07/15/22 12:19 35.7 C L 77 23 121/68 94 Mechanical Vent 40 07/15/22 12:26 87 18 100 60 Critical Care Results & Data Vital Signs (Past 12 Hours) Vital Signs Temp Pulse Resp BP Pulse Ox O2 Del Method FiO2 07/15/22 15:32 57 L 18 100 30 07/15/22 15:22 Mechanical Vent 40 07/15/22 15:03 55 L 19 107/70 100 Mechanical Vent 07/15/22 15:01 56 L 19 117/72 100 Mechanical Vent 07/15/22 14:57 61 19 111/71 100 Mechanical Vent 30 07/15/22 13:30 72 25 H 100 Mechanical Vent 07/15/22 13:30 110/71 Mechanical Vent 07/15/22 13:20 75 18 95 Mechanical Vent 07/15/22 13:15 102/73 Mechanical Vent 07/15/22 13:15 75 18 97 Mechanical Vent 07/15/22 13:10 75 21 100 Mechanical Vent 07/15/22 13:01 112/89 Mechanical Vent 07/15/22 13:01 90 100 Mechanical Vent 07/15/22 13:00 85 94 Mechanical Vent 07/15/22 12:50 95 H 21 95 Mechanical Vent 07/15/22 12:45 102/71 Mechanical Vent 07/15/22 12:45 92 H 21 95 Mechanical Vent 07/15/22 12:40 86 18 96 Mechanical Vent 07/15/22 12:30 88 18 100 Mechanical Vent 07/15/22 12:30 102/71 Mechanical Vent 07/15/22 12:27 85 18 100 Mechanical Vent 07/15/22 12:27 104/70 Mechanical Vent 07/15/22 12:24 80 18 100 Mechanical Vent 07/15/22 12:19 35.7 C L 77 23 121/68 94 Mechanical Vent 40 07/15/22 12:26 87 18 100 60 Lab & Micro Results (Past 24 Hours) RBC 4.89 M/uL (4.63-6.08) 07/15/22 WBC 7.20 K/ul (4.8-10.8) 07/15/22 Hgb 14.9 g/dl (14.0-18.0) 07/15/22 Hct 42.4 % (40.1-51.0) 07/15/22 MCV 86.7 fL (80.0-100.0) 07/15/22 MCH 30.5 pg (25.0-34.0) 07/15/22 MCHC 35.1 g/dL (32.0-36.0) 07/15/22 RDW Standard Deviation 40.8 fL (36.4-46.3) 07/15/22 RDW Coefficient of Variation 13.0 % (11.5-14.5) 07/15/22 Plt Count 262 K/uL (130-400) 07/15/22 MPV 9.2 fL (9.4-12.4) L 07/15/22 Neutrophils (%) (Auto) 70.2 % 07/15/22 Lymphocytes (%) (Auto) 20.8 % 07/15/22 Monocytes # (Auto) 0.57 K/uL (0.24-0.82) 07/15/22 Eosinophils # (Auto) 0.02 K/uL (0-0.50) 07/15/22 Immature Granulocyte % (Auto) 0.4 % 07/15/22 Neutrophils # (Auto) 5.05 K/uL (1.4-6.5) 07/15/22 Lymphocytes # (Auto) 1.50 K/uL (1.2-3.4) 07/15/22 Monocytes # (Auto) 0.57 K/uL (0.24-0.82) 07/15/22 Eosinophils # (Auto) 0.02 K/uL (0-0.50) 07/15/22 Basophils # (Auto) 0.03 K/uL (0-0.2) 07/15/22 Immature Granulocyte # (Auto) 0.03 K/uL (0.00-0.02) H 07/15 Na 139 mmol/L (136-145) 07/15/22 K 3.0 mmol/L (3.5-5.1) L 07/15/22 Cl 102 mmol/L (98-107) 07/15/22 CO2 17 mmol/L (21-32) L 07/15/22 Anion Gap 20 (3-11) H 07/15/22 BUN 20 mg/dl (6-23) 07/15/22 Creatinine 1.42 mg/dl (0.6-1.4) H 07/15/22 Estimated GFR ( Amer) 59.6 ml/min 07/15/22 Estimated GFR (Non-Af Amer) 51.5 ml/min 07/15/22 BUN/Creatinine Ratio 14.1 (10-20) 07/15/22 Glu 175 mg/dl (70-99(Fasting)) H 07/15/22 Ca 9.3 mg/dl (8.5-10.1) 07/15/22 Total Bilirubin 1.2 mg/dl (0.2-1.0) H 07/15/22 AST 22 U/L (13-39) 07/15/22 ALT 15 U/L (7-52) 07/15/22 Alkaline Phosphatase 78 U/L (34-104) 07/15/22 TP 7.6 gm/dl (6.0-8.3) 07/15/22 Albumin 4.5 gm/dl (3.4-5.0) 07/15/22 Globulin 3.1 gm/dl (2.5-4.0) 07/15/22 Albumin/Globulin Ratio 1.5 (0.9-2) 07/15/22 Calcium Level 9.3 mg/dl (8.5-10.1) 07/15/22 11:59 Venous Blood pH 7.29 (7.36-7.41) L 07/15/22 13:01 Venous Blood Partial Pressure CO2 47 mmHg (38-50) 07/15/22 13:0 1 Venous Blood Partial Pressure O2 69 mmHg 07/15/22 13:01 Venous Blood HCO3 23 mmol/L 07/15/22 13:01 Venous Blood Base Excess -4.2 mEq/L 07/15/22 13:01 Venous Blood Oxygen Saturation 94.2 % 07/15/22 13:01 Diagnostic Findings (Past 24 Hours) Head CT 07/15/22 11:36 CT OF THE HEAD WITHOUT CONTRAST CLINICAL HISTORY: Altered mental status. COMPARISON STUDY: No previous studies for comparison. TECHNIQUE: Helical axial images of the head were obtained without IV contrast. Automated exposure control was utilized for the study. A dose lowering technique was utilized adhering to the principles of ALARA. FINDINGS: No acute intracranial hemorrhage, midline shift or mass effect is present. The ventricular system is unremarkable. The basal cisterns are patent. No extra-axial collections are present. There are no findings to suggest acute dural sinus thrombosis or acute territorial infarct. No significant calvarial abnormalities are present. Visualized portions of the sinuses and mastoid air cells are clear. Secretions within the nasopharynx are related to intubation. IMPRESSION: No acute intracranial findings. ACT 112: Negative or not required by law. Electronically signed by: Zachery Yancey M.D. 07/15/2022 12:20 PM Chest X-Ray 07/15/22 11:37 XR chest 1V portable supine CLINICAL HISTORY: Altered mental status. COMPARISON STUDY: No previous studies for comparison. FINDINGS: Tip of endotracheal tube is 7 mm above the bora. The tube could be withdrawn 2 cm. No pneumothorax is identified on supine exam. No consolidation. Mediastinal contours are within normal limits on supine exam. Pulmonary vascular congestion without overt pulmonary edema. IMPRESSION: 1. Tip of endotracheal tube 7 mm above the bora. The tube could be withdrawn 2 cm. 2. Pulmonary vascular congestion without overt pulmonary edema. ACT 112: Negative or not required by law. Electronically signed by: Zachery Yancey M.D. 07/15/2022 12:[address] 07/15/22 12:04 CT OF THE CERVICAL SPINE WITHOUT CONTRAST CLINICAL HISTORY: Altered mental status. COMPARISON STUDY: No previous studies for comparison. TECHNIQUE: Helical axial images of the cervical spine were obtained without IV contrast. Sagittal and coronal reconstructions were viewed. Automated exposure control was utilized for the study. A dose lowering technique was utilized adhering to the principles of ALARA. FINDINGS: Alignment of the cervical spine is anatomic. Vertebral body heights are maintained. No acute cervical spine fracture or subluxation is present. There is no prevertebral edema. Facet joints are intact. Endotracheal tube is partially imaged. Moderate multilevel degenerative changes are present. IMPRESSION: No acute cervical spine fracture or subluxation. ACT 112: Negative or not required by law. Electronically signed by: Zachery Yancey M.D. 07/15/2022 12:24 PM Brain MRI 07/15/22 13:07 MRI OF THE BRAIN WITHOUT AND WITH IV CONTRAST SEIZURE PROTOCOL CLINICAL HISTORY: new onset seizure COMPARISON STUDY: Head CT performed earlier today. TECHNIQUE: Utilizing a 1.5 Angie magnet and dedicated coil, multiplanar, multiecho imaging of the brain was performed pre and postcontrast administration. IV administration of 6 mL of Gadavist contrast was uneventful. Thin cut coronal T2 imaging was performed according to seizure protocol. FINDINGS: There are are no foci of restricted diffusion to suggest acute infarct. No acute intracranial hemorrhage, midline shift or mass effect is present. Brain volume is normal. Ventricular system is normal. Basal cisterns are patent. There are no extra-axial collections. Flow-voids for the major intracranial vessels are present. There is no intracranial mass or pathologic enhancement. No significant parenchymal signal abnormality is identified. Mesial temporal lobes are unremarkable. Flow-voids for the major intracranial vessels are present. Secretions within the nasopharynx are related to intubation. IMPRESSION: Unremarkable MRI of the brain. No acute findings. No intracranial mass or pathologic enhancement. ACT 112: Negative or not required by law. Electronically signed by: Zachery Yancey M.D. 07/15/2022 3:15 PM I & O Totals 24 Hours 07/14/22 07/15/22 07/16/22 06:59 06:59 06:59 Intake Total 38.311 / 38.311 Balance 38.311 / 38.311 Cumulative 07/15/22 11:09 thru 07/15/22 15:42 Intake Total 38.311 Balance 38.311 RT Ventilator Mngmt (Last Documented) Ventilator Ordered Settings Ventilator Support Mode Assist Control 07/15/22 15:32 Respiratory Rate 18 07/15/22 15:32 Ventilator Tidal Volume 450 07/15/22 15:32 Setting Minute Ventilation 8.1 07/15/22 15:32 Positive End Expiratory 5 07/15/22 15:32 Pressure Fraction of Inspired Oxygen 30 07/15/22 15:32 Ventilator - PT Measurements Respiratory Rate 18 Exhaled Tidal Volume 450 Minute Ventilation 8.1 Peak Inspiratory Airway 14 Pressure Plateau Pressure 12 Respiratory Cycle Inspiratory: 1:3.2 Expiratory Ratio Inspiratory Phase Time 0.8 End-Tidal CO2 33 Static Lung Compliance 64.29 Dynamic Lung Compliance 50.00 Normal Static Lung Compliance 48.00 Coding Level of Care Code Critical Care 1st 30-74 mins Diagnoses Altered mental status, unspecified R40.4 Altered mental status type: transient alteration of awareness Elevated serum creatinine R79.89 Hypokalemia E87.6 Marijuana use F12.90 Hyperglycemia R73.9 Time Spent (min) 45 (1) Altered mental status, unspecified Altered mental status type: transient alteration of awareness Qualified Code(s): R40.4 - Transient alteration of awareness
--- NOTE | 2022-07-15 15:39 | Electroencephalogram ---
EEG Procedure Note Date of Service July 15, 2022 Start / End Times Start Time: 3:07 PM End Time: 3:[address] Rader History Seizure Home Medication List Medication Instructions Recorded Confirmed Type No Known Home Medications 07/15/22 07/15/22 History Inpatient Medication List Propofol (Diprivan) 1,000 mg in 100 mls @ 16.56 mls/hr IV .Q6H3M MARIA D; Protocol Stop: 07/18/22 12:14 Last Titration: 07/15/22 15:10 Dose: 40 mcg/kg/min, 16.6 mls/hr Documented By: Titration: 07/15/22 14:23 Dose: 44.93 mcg/kg/min, 18.6 mls/hr Documented By: Titration: 07/15/22 13:57 Dose: 35.99 mcg/kg/min, 14.9 mls/hr Documented By: Titration: 07/15/22 13:28 Dose: 30 mcg/kg/min, 12.4 mls/hr Documented By: Titration: 07/15/22 13:06 Dose: 25 mcg/kg/min, 10.4 mls/hr Documented By: Admin: 07/15/22 12:33 Dose: 20 mcg/kg/min, 8.3 mls/hr Documented By: HARRISON Co-signed By: RUTH Sodium Chloride (Nss 1000ml) 1,000 mls @ 80 mls/hr IV .[id number] MARIA D Stop: 08/14/22 15:08 Last Admin: 07/15/22 15:18 Dose: 80 mls/hr Documented By: KELLI Propofol (Propofol Bolus From Bag) 20 mg IV Q5M PRN PRN Reason: Sedation Stop: 07/18/22 12:14 Last Admin: 07/15/22 13:51 Dose: 20 mg Documented By: RUTH Co-signed By: STEVIE Admin: 07/15/22 13:28 Dose: 20 mg Documented By: RUTH Co-signed By: HARRISON Admin: 07/15/22 13:01 Dose: 20 mg Documented By: HARRISON Co-signed By: RUTH Admin: 07/15/22 12:48 Dose: 20 mg Documented By: HARRISON Co-signed By: RUTH Admin: 07/15/22 12:36 Dose: 20 mg Documented By: HARRISON Co-signed By: RUTH Discontinued Medications Diphenhydramine HCl (Diphenhydramine 50 Mg/Ml Vial) Confirm Administered Dose 50 mg .ROUTE .STK-MED ONE Stop: 07/15/22 11:26 Last Admin: 07/15/22 11:20 Dose: 50 mg Documented By: ELIE Fentanyl Citrate (Fentanyl Citrate 100 Mcg/2 Ml Vial) 25 mcg IV Q30M PRN PRN Reason: Agitation Stop: 07/29/22 13:18 Last Admin: 07/15/22 14:50 Dose: 25 mcg Documented By: Admin: 07/15/22 13:25 Dose: 25 mcg Documented By: RUTH Gadobutrol (Gadobutrol 65ml Vial) 6 ml IV ONCE ONE Stop: 07/15/22 14:55 Last Admin: 07/15/22 14:36 Dose: 6 ml Documented By: GABRIELA Haloperidol Lactate (Haloperidol Lactate 5 Mg/Ml 1 Ml Vial) Confirm Administered Dose 5 mg .ROUTE .STK-MED ONE Stop: 07/15/22 11:26 Last Admin: 07/15/22 11:20 Dose: 5 mg Documented By: ELIE Haloperidol Lactate (Haloperidol Lactate 5 Mg/Ml 1 Ml Vial) Confirm Administered Dose 5 mg .ROUTE .STK-MED ONE Stop: 07/15/22 11:30 Last Admin: 07/15/22 11:37 Dose: 5 mg Documented By: ELIE Sodium Chloride (Nss 1000ml) 1,000 mls @ 999 mls/hr IV .Q1H1M MARIA D Stop: 07/15/22 12:45 Last Admin: 07/15/22 12:34 Dose: 125 mls/hr Documented By: HARRISON Ketamine HCl (Ketamine Hcl Inj 50 Mg/Ml 10 Ml Vial) Confirm Administered Dose 500 mg .ROUTE .STK-MED ONE Stop: 07/15/22 11:36 Last Admin: 07/15/22 12:56 Dose: Not Given Documented By: HARRISON Lorazepam (Lorazepam 2 Mg/1 Ml Vial) Confirm Administered Dose 2 mg .ROUTE .STK- MED ONE Stop: 07/15/22 11:17 Last Admin: 07/15/22 11:15 Dose: 2 mg Documented By: ELIE Lorazepam (Lorazepam 2 Mg/1 Ml Vial) Confirm Administered Dose 4 mg .ROUTE .STK- MED ONE Stop: 07/15/22 11:36 Last Admin: 07/15/22 11:50 Dose: 4 mg Documented By: ELIE Lorazepam (Lorazepam 2 Mg/1 Ml Vial) 2 mg IV NOW STA; Protocol Stop: 07/15/22 11:39 Last Admin: 07/15/22 11:50 Dose: 2 mg Documented By: ELIE Lorazepam (Lorazepam 2 Mg/1 Ml Vial) Confirm Administered Dose 2 mg .ROUTE .STK- MED ONE Stop: 07/15/22 11:42 Last Admin: 07/15/22 11:51 Dose: Not Given Documented By: ELIE Lorazepam (Lorazepam 2 Mg/1 Ml Vial) 1 mg IV NOW STA; Protocol Stop: 07/15/22 12:54 Last Admin: 07/15/22 12:55 Dose: 1 mg Documented By: HARRISON Miscellaneous (Rapid Sequence Induction Bag) Confirm Administered Dose 1 each .ROUTE .STK-MED ONE Stop: 07/15/22 11:48 Last Admin: 07/15/22 12:55 Dose: 1 each Documented By: HARRISON Description This is a 21 electrode EEG with a single channel dedicated to limited EKG. The electrodes were placed in accordance with the International 10-20 system. There is a posterior dominant rhythm of 10 Hz which is symmetrically distributed and attenuates with eye opening. There is a normal anterior to posterior organization. Photic stimulation is unremarkable. Hyperventilation is not performed. There is a symmetric frontal beta rhythm. There is no focal slowing. There are no epileptiform abnormalities. There are no sleep changes. Interpretation Normal-appearing awake/drowsy EEG. A normal EEG does not completely exclude a diagnosis of epilepsy. Further clinical correlation may be needed. [facility] [place] Codes Indication for Procedure (1) Seizure: Neurology Neurology: [id number] EEG include record awake & drowsy
[2022-07-15] MEDS ORDERED: PNEUMOCOCCAL POLYSACCHARIDES 25 MCG/0.5 ML VIAL/SYR IM ONE (16:05)
[2022-07-15 17:47] LABS: Magnesium 2.2 mg/dl (1.7-2.4); Phosphorus 1.9 mg/dl (2.5-4.9)
[2022-07-15] MEDS: ICU ELECTROLYTE REPLACEMENT PROTOCOL SCH (18:41)
[2022-07-15] MEDS ORDERED: SODIUM PHOSPHATE 3 MMOL/1 ML INFUSION IV STA (18:42)
[2022-07-15] MEDS ORDERED: SODIUM PHOSPHATE 21 MMOL in SODIUM CHLORIDE 0.9% 500 ML IV ONE (19:00)
[2022-07-15] MEDS ORDERED: HEPARIN SOD 5,000 UNIT/0.5 ML VIAL SQ SCH (21:00)
[2022-07-16] MEDS: SODIUM CHLORIDE 0.9% 1000ML 1,000 ML IV SCH (00:47)
[2022-07-16] MEDS: propofoL 1,000 MG/100 ML VIAL IV SCH (00:48)
--- NOTE | 2022-07-16 05:28 | Critical Care Progress Note ---
Date of Service July 16, 2022 Assessment & Plan (1) Altered mental status, unspecified: Plan: Impression: 66-year-old male without significant past medical history who presents after altered mental status. PLAN: Neuro: Altered mental status -Rule out seizure activity -Unclear significance of marijuana positive on UDS -Hypokalemia associated weakness -EEG without evidence of epileptiform abnormalities. Normal EEG -Awaiting neurology consult -Currently alert and oriented, no further seizure activity since hospitalization Resp: Intubation to facilitate medical evaluation -Extubated yesterday afternoon. Currently maintaining oxygen saturation on room air Fluids/Renal: Elevated serum creatinine -Probable prerenal in origin: Hyaline casts and trace ketones noted on UA -Follow-up creatinine this a.m. Hypokalemia -Follow-up BMP this a.m. -ICU electrolyte protocol ID: No indication for anti-infectives at this time GI/Nutrition: N.p.o. Heme: DVT prophylaxis: Heparin subcu Endocrine: ICU hyperglycemia protocol Hyperglycemia -Check A1c Vascular access: Peripheral IVs Code Status: Full code Disposition: Okay to downgrade from ICU (2) Elevated serum creatinine: (3) Hypokalemia: (4) Marijuana use: (5) Hyperglycemia: Admission and Anticipated Discharge Date Admission Date: July 15, 2022 Supervising Physician Co-Signing Physician Notes I have personally evaluated and examined this patient. I agree with assessment and plan of Dasia BAEN. Patient asymptomatic. Awaiting evaluation by neurology. Stable for downgrade versus discharge. Subjective This morning the patient is alert and oriented. He was extubated successfully yesterday afternoon and is hemodynamically stable and currently on room air. He has no recollection of being hospitalized and states the last thing he remembers was being at the [facility] yesterday. He denies any substance use or alcohol dependence. EEG yesterday was unremarkable. He has had no further seizure-like activity and no acute events overnight. Awaiting neurology consult. He remains somewhat drowsy but no further complaints at this time. Okay to downgrade from ICU status. Review of Systems Review of Systems: All systems reviewed & are unremarkable except as noted in HPI & below Physical Exam Constitutional: cooperative and comfortable; no acute distress Eyes: PERRL, conjunctivae normal, anicteric sclerae ENMT: external ear and nose normal, oropharynx normal Neck: trachea midline, no thyromegaly Respiratory: normal respiratory effort, lungs clear to auscultation Cardiovascular: RRR, no murmur, no edema Gastrointestinal (Abdomen): normal bowel sounds, soft, nontender, no hepatosplenomegaly Musculoskeletal: no cyanosis or clubbing, extremities motor strength 5/5 Skin: no rashes, warm and dry Neurologic: PERRL, EOMI, accommodation nl, no face palsy, no dysarthria Psychiatric: A+Ox3, euthymic affect Results & Data Results & Data ([facility]) Vital Signs (Past 12 Hours) Vital Signs Temp Pulse Resp BP Pulse Ox O2 Del Method FiO2 07/16/22 03:00 78 21 96 07/16/22 03:00 120/80 07/16/22 02:00 67 23 94 07/16/22 02:00 105/58 L 07/16/22 01:00 68 23 94 07/16/22 01:00 120/75 07/16/22 00:01 64 22 95 07/16/22 00:01 119/74 07/16/22 00:00 66 18 96 07/15/22 23:45 62 23 94 07/15/22 23:45 131/67 07/15/22 23:00 61 24 96 07/15/22 23:00 121/76 07/15/22 22:30 70 16 97 07/15/22 22:30 119/73 07/15/22 22:00 61 26 H 99 07/15/22 22:00 124/79 07/15/22 21:30 129/74 07/15/22 21:30 58 L 20 98 07/15/22 21:00 62 23 96 07/15/22 21:00 112/68 07/15/22 23:02 66 07/15/22 20:30 64 24 96 07/15/22 20:30 108/70 07/15/22 20:20 62 23 97 07/15/22 20:10 62 23 98 07/15/22 20:00 63 23 98 07/15/22 20:00 114/75 07/15/22 19:50 63 22 97 07/15/22 19:40 60 20 97 07/15/22 19:30 65 20 96 07/15/22 19:30 119/72 07/15/22 19:20 63 22 96 07/15/22 19:10 62 21 94 07/15/22 19:00 63 22 97 07/15/22 19:00 110/72 07/15/22 18:50 63 22 98 07/15/22 18:40 62 21 98 07/15/22 18:30 68 23 95 07/15/22 18:30 141/81 H 07/15/22 18:20 64 20 97 07/15/22 18:10 61 18 98 07/15/22 18:00 62 18 99 07/15/22 18:00 98/68 L 07/15/22 17:50 59 L 18 99 07/15/22 17:40 59 L 19 99 07/15/22 20:38 36.8 C 07/15/22 17:30 57 L 18 99/69 L 100 Mechanical Vent 30 Coding Level of Care Code 14963 Subseq Hosp Care Lvl 2 Diagnoses Altered mental status, unspecified R41.82 Elevated serum creatinine R79.89 Hypokalemia E87.6 Marijuana use F12.90 Hyperglycemia R73.9
[2022-07-16 05:41] LABS: Hematocrit (blood only) 35.4 % (40.1-51.0); Hemoglobin 12.6 g/dl (14.0-18.0); Mean Corpuscular Hemoglobin 30.5 pg (25.0-34.0); Mean Corpuscular Hgb Conc 35.6 g/dL (32.0-36.0); Mean Corpuscular Volume 85.7 fL (80.0-100.0); Mean Platelet Volume 9.4 fL (9.4-12.4); Platelet Count 178 K/uL (130-400); RDW Standard Deviation 40.4 fL (36.4-46.3); Red Blood Count 4.13 M/uL (4.63-6.08); White Blood Count 8.49 K/ul (4.8-10.8)
[2022-07-16 05:59] LABS: Albumin Globulin Ratio 1.5 (0.9-2); Albumin Level 3.5 gm/dl (3.4-5.0); BUN Creatinine Ratio 14.4 (10-20); Bilirubin,Total 1.4 mg/dl (0.2-1.0); Calcium 8.3 mg/dl (8.5-10.1); Chol HDL Ratio 4.1 (0-5); Creatinine Clr Calc Pharmacy 51.6 ml/min; Est GFR (African American) 69.6 ml/min; Globulin 2.4 gm/dl (2.5-4.0); Magnesium 2.2 mg/dl (1.7-2.4); Phosphorus 3.1 mg/dl (2.5-4.9); Potassium 3.8 mmol/L (3.5-5.1); Total Protein 5.9 gm/dl (6.0-8.3)
[2022-07-16] MEDS: ICU ELECTROLYTE REPLACEMENT PROTOCOL SCH (06:53)
[2022-07-16] MEDS: POTASSIUM CHLORIDE CRTAB 20 MEQ TABCR PO SCH ×2 (07:35→11:11)
[2022-07-16] MEDS: HEPARIN SOD 5,000 UNIT/0.5 ML VIAL SQ SCH ×2 (07:35→14:03)
--- NOTE | 2022-07-16 07:38 | Hospitalist Progress Note ---
Date of Service July 16, 2022 Assessment & Plan (1) Seizure: Plan: First episode. No family hx of seizure, though son did pass away from a brain tumor (unk type). - Intubated in ER for combativeness, then airway protection -> Admitted to ICU, regained mental status, pending neurology evaluation -CT head and neck negative - MRI brain seizure protocol, unremarkable - UDS cannabis and benzodiazepine, but those maybe from treatment - EEG unremarkable for seizure activity - Seizure precautions - (2) DVT prophylaxis: Plan: Heparin 5,000 units SQ Q12h Admission and Anticipated Discharge Date Admission Date: July 15, 2022 Results & Data Results & Data ([facility]) Vital Signs (Past 12 Hours) Vital Signs Temp Pulse Resp BP Pulse Ox 07/16/22 06:00 61 22 95 07/16/22 06:00 116/57 L 07/16/22 00:00 98.6 F 07/16/22 05:10 65 24 93 07/16/22 05:00 66 23 94 07/16/22 05:00 110/69 07/16/22 04:50 62 26 H 95 07/16/22 04:40 62 26 H 96 07/16/22 04:30 63 24 95 07/16/22 04:20 66 23 94 07/16/22 04:10 70 24 94 07/16/22 04:00 71 22 94 07/16/22 04:00 106/69 07/16/22 03:50 69 20 94 07/16/22 03:40 70 24 94 07/16/22 03:30 67 21 94 07/16/22 03:20 65 23 93 07/16/22 03:10 65 22 93 07/16/22 05:18 99.0 F 07/16/22 03:00 78 21 96 07/16/22 03:00 120/80 07/16/22 02:00 67 23 94 07/16/22 02:00 105/58 L 07/16/22 01:00 68 23 94 07/16/22 01:00 120/75 07/16/22 00:01 64 22 95 07/16/22 00:01 119/74 07/16/22 00:00 66 18 96 07/15/22 23:45 62 23 94 07/15/22 23:45 131/67 07/15/22 23:00 61 24 96 07/15/22 23:00 121/76 07/15/22 22:30 70 16 97 07/15/22 22:30 119/73 07/15/22 22:00 61 26 H 99 07/15/22 22:00 124/79 07/15/22 21:30 129/74 07/15/22 21:30 58 L 20 98 07/15/22 21:00 62 23 96 07/15/22 21:00 112/68 07/15/22 23:02 66 07/15/22 20:30 64 24 96 07/15/22 20:30 108/70 07/15/22 20:20 62 23 97 07/15/22 20:10 62 23 98 07/15/22 20:00 63 23 98 07/15/22 20:00 114/75 07/15/22 19:50 63 22 97 07/15/22 19:40 60 20 97 07/15/22 20:38 98.2 F PG Care Time/CCT Total # of Minutes Spent Total Time Spent with Patient: Total time spent is greater than 50% in coordination of care (as documented) at patient's floor/unit and/or counseling patient: Coding Diagnoses Seizure R56.9 DVT prophylaxis Z29.9
--- NOTE | 2022-07-16 10:17 | Neurology Consultation ---
Date of Consultation July 16, 2022 Assessment & Plan (1) Seizure: (2) Altered mental status, unspecified: Plan This patient had 2 discrete episodes (back to back) July 15. The 1st episode involved some syncope with a possible warning of abnormal smells and nausea. although this may have been a seizure, I wonder if this was actually a vasovagal event ( he has had these in the past). Shortly after he woke up from this event he went into a generalized tonic-clonic seizure and had a significant postictal state. I wonder if the seizure was actually a secondary seizure to the vasovagal event decreasing cerebral perfusion. Today he is back to baseline with no focal findings, meningeal signs, or encephalopathy. He had a normal MRI of the brain and EEG. Laboratory studies were unremarkable relative to his events except his prolactin was elevated suggesting a generalized seizure. However, he does not have a specific primary etiology for a seizure. Recommendations: 1. Because he live so far away and we do not have an exact etiology to this seizure, initiate levetiracetam 500 mg twice daily as precaution. 2. I see no need for additional neurologic testing or treatment otherwise, at this time. 3. Increase activity as able and check for orthostasis. overall, I spent 75 minutes with this case including review of records, review of MRI films, direct evaluation the patient at bedside, and discussion of the case with the patient and at bedside, RN at bedside, and doctors Hilda and Prasanth at bedside, including differential diagnosis and treatment options. History of Present Illness Reason for Consultation: Patient is a 66-year-old, who I was asked to see at the request of Dr. Rader, for neurologic consultation regarding unresponsive episode/seizure Requesting Physician: Dr. Rader Attending Physician: Dariusz Stevens MD History of Present Illness this patient comes from [place], [place] ( 2 1/2 hours away). He is on no medication at home and has no known medical issues of significance. Much of the history comes from the who I spoke with via telephone at bedside with the patient. He has had a few episodes of syncope in the past mostly with stress ( for example, he went to the hospital to visit his ill father and passed out). Patient remembers leaving the house July 15 at 7:30 a.m. and drove to [place] for the football game , arriving around 0945. He parked downtown near [facility] and he and his went to [employer]. He had a cheeseburger and a sweet tea. he then remembers walking to the game ( around 10 30) and while walking uphill he was nauseated. He also smelled something abnormal ( "like a bus"). All of this the patient's verifies but the patient's states that she did not smell any abnormal smell. The patient was asked if he would like to sit down and apparently he said no but then he slumped to the ground with his eyes closed not responding and no speech. Apparently he laid there for about 30 seconds to a minute. apparently a PA was passing by and stated that the patient's pulse was somewhat weak and irregular. He then opened his eyes and sat his head up off the ground, seeming confused. About 10-15 seconds after this (according to the )The patient went into a generalized stiffening and jerking episode lasting a minute. He was very confused afterwards. In the ambulance he was combative and in the emergency room he was combative. He had no incontinence or tongue biting. He had no further episode after this. He arrived to the emergency room July [id number] and he was afebrile. Blood pressure was 104/70 with a pulse of 87 and regular. Respiratory rate was 18 and oxygen was 100%. He was intubated because of him thrashing and screaming and being so combative CBC and Chem profile were unremarkable although a prolactin was 42 (normal 3- 13). TSH was 3.3. Glucose was elevated at 175 and creatinine was 1.42. Alcohol level was 0. He had positive benzodiazepines and marijuana in his urine . Chest x-ray was unremarkable. CT scan of the head was unremarkable. CT scan of the cervical spine was unremarkable. MRI of the brain was unremarkable with no stroke or abnormalities. I reviewed these films. EEG showed normal background activity and no focal abnormalities or potentially epileptogenic activity. The patient was extubated yesterday afternoon and has had no issues since. CBC and Chem profile today were largely unremarkable although his calcium was mildly low. Lipid profile was unremarkable. This morning the patient has no complaints. He has no pain, weakness, numbness, vision problems, speech issues, or headache. Allergies Allergy/AdvReac Type Severity Reaction Status Date / Time No Known Allergies Allergy Unverified 07/15/22 12:56 Home Medications Medication Instructions Recorded Confirmed Type No Known Home Medications 07/15/22 07/15/22 History Patient History Medical History No pertinent past medical history Seizure Surgical History No pertinent past surgical history Family History Son Brain malignancy Social History (Updated 07/16/22 @ 10:12 by Severo Johnson MD) Smoking Status: Current some day smoker Tobacco Type: Cigars Hx Alcohol Use: Yes Alcohol type: beer Hx Substance Use: Yes Last Used Substance: Unknown Substance Use Type Other:: per report Preferred Language: Bangl[place]hi [employer] Consultant Required: No Current Living Situation: Spouse current occupational status: retired 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 Feels Safe at Home: Yes Assistive Devices: None Review of Systems Constitutional: no fever, no fatigue and no weakness Eyes: no diplopia, no eye pain and no worsening vision Ear, Nose, Mouth, Throat: no ear pain, no tinnitus, no hearing loss, no dizziness, no snoring, no hoarseness and no dysphagia Respiratory: no cough and no dyspnea Cardiovascular: no chest pain, no palpitations and no lightheadedness Gastrointestinal: no abdominal pain, no nausea and no vomiting Musculoskeletal: no back pain, no neck pain, no radicular pain, no joint pain and no myalgia Integumentary: no rash and no lesions Neurologic: no gait abnormality, no localized weakness, no generalized weakness, no tingling, no numbness, no tremor(s), no abnormal movements, no headache(s), no abnormal speech, no confusion and no memory loss Psychiatric: no depression, no irritability, no anxiety, no difficulty concentrating, no confusion and no hallucinations Endocrine: no fatigue and no flushing Hematologic / Lymphatic: no easy bleeding and no easy bruising Allergy / Immunological: no urticaria and no problem reported Exam (Neuro) Physical Exam: The patient is left-handed. The patient is awake, alert, and attentive. Speech is normal without any aphasia or dysarthria. The patient can name objects, repeat phrases, and has normal spontaneous speech. Mentation and thought processes are intact, with orientation to person, place and time, and normal fund of knowledge. Attention and concentration are normal. Mood and affect are normal and appropriate. General appearance and grooming are normal. Short and long-term memory are intact. The discs are sharp with positive venous pulsations bilaterally. There are no exudates, hemorrhages, or blood vessel changes seen. Pupils are 4 mm bilaterally and reactive to light. Extraocular eye muscles are intact without nystagmus. Visual acuity and visual vazquez seem normal grossly to confrontation. There are no deficits to sensation in the face in all 3 distributions of the fifth cranial nerve bilaterally. Corneal reflexes are positive bilaterally. Facial strength and symmetry was normal bilaterally. Hearing seems normal bilaterally. Palate moves well without asymmetry. There is normal sternocleidomastoid and trapezius (shoulder shrug) strength bilaterally. Tongue is midline with good strength bilaterally. Neck has a full range of motion without discomfort. There are no cervical bruits bilaterally. There are no cranial or ocular bruits. Heart is without murmur. There is a regular rhythm and rate. Cervical, thoracic, and lumbar spine are nontender to palpation. Gait was not tested but stance sitting up is quite normal without symptoms. With outstretched arms there is no drift. There are no resting, postural, or action tremors. There is no ataxia with finger to nose testing. There is good facility in the hands. No other abnormal involuntary movements are noted. Motor strength is 5/5 diffusely in the arms bilaterally including deltoids, biceps, triceps, brachioradialis, wrist flexors and extensors, converter supervisor, and intrinsic hand muscles. Motor strength is 5/5 diffusely in the legs bilaterally including hip flexors, quadriceps, hamstrings, gastrocnemius, tibialis anterior, tibialis posterior, and Peroneii muscles. Toe extensors are normal and there is good bulk in the extensor digitorum brevis muscles bilaterally. The limbs have good tone without rigidity or spasticity. There is no atrophy noted in the muscles. Muscle bulk is normal, there is no tenderness to palp ation, no myotonia to percussion, and no fasciculations seen. Sensory examination is intact to touch and pin throughout all 4 limbs diffusely. Reflexes are 1/4 in the biceps, triceps, brachioradialis, quadriceps, and Achilles tendons bilaterally. There is no clonus bilaterally. Toes are downgoing with plantar stimulation bilaterally. Peripheral pulses are present and of normal quality distally in all 4 limbs. There is no peripheral edema noted in the limbs. Results & Data ([facility]) Vital Signs (Past 12 Hours) Vital Signs Temp Pulse Resp BP Pulse Ox O2 Del Method 07/16/22 09:00 71 20 118/77 94 Room Air 07/16/22 08:14 60 22 92/52 L 93 Room Air 07/16/22 08:00 66 07/16/22 07:00 65 23 107/55 L 96 Room Air 07/16/22 07:00 36.7 C 07/16/22 06:00 61 22 95 07/16/22 06:00 116/57 L 07/16/22 00:00 37.0 C 07/16/22 05:10 65 24 93 07/16/22 05:00 66 23 94 07/16/22 05:00 110/69 07/16/22 04:50 62 26 H 95 07/16/22 04:40 62 26 H 96 07/16/22 04:30 63 24 95 07/16/22 04:20 66 23 94 07/16/22 04:10 70 24 94 07/16/22 04:00 71 22 94 07/16/22 04:00 106/69 07/16/22 03:50 69 20 94 07/16/22 03:40 70 24 94 07/16/22 03:30 67 21 94 07/16/22 03:20 65 23 93 07/16/22 03:10 65 22 93 07/16/22 05:18 37.2 C 07/16/22 03:00 78 21 96 07/16/22 03:00 120/80 07/16/22 02:00 67 23 94 07/16/22 02:00 105/58 L 07/16/22 01:00 68 23 94 07/16/22 01:00 120/75 07/16/22 00:01 64 22 95 07/16/22 00:01 119/74 07/16/22 00:00 66 18 96 07/15/22 23:45 62 23 94 07/15/22 23:45 131/67 07/15/22 23:00 61 24 96 07/15/22 23:00 121/76 07/15/22 22:30 70 16 97 07/15/22 22:30 119/73 07/15/22 23:02 66 PG Care Time/CCT Total # of Minutes Spent Total Time Spent with Patient: Total time spent is greater than 50% in coordination of care (as documented) at patient's floor/unit and/or counseling patient: Coding Level of Care Code 98345 Initial Inpt Care Lvl 3 Diagnoses Seizure R56.9 Altered mental status, unspecified R41.82 Time Spent (min) 75
[2022-07-16] MEDS ORDERED: levETIRAcetam 500 MG TAB PO ONE (13:23)
--- NOTE | 2022-07-16 14:55 | Electrocardiogram Report ---
Test Reason : Blood Pressure : / mmHG Vent. Rate : 091 BPM Atrial Rate : 091 BPM P-R Int : 140 ms QRS Dur : 094 ms QT Int : 396 ms P-R-T Axes : 078 062 061 degrees QTc Int : 487 ms Normal sinus rhythm Left atrial enlargement Prolonged QT Abnormal ECG No previous ECGs available Confirmed by Lavelle Samuels ([id number]) on 07/16/2022 2:55:02 PM Referred By: REFERRED SELF Confirmed By:Lavelle Samuels
--- NOTE | 2022-07-16 14:55 | Discharge Summary ---
Date of Service July 16, 2022 Admission HPI Per Admitting Provider 66yo M w/ no major PMH who presents with likely seizure. Patient is intubated and heavily sedated, so we have no information from him, but his reports that he was in his normal state of health today. They were walking toward the stadium for the football game, and he reported that he smelled something. His asked if he wanted to sit down, and he said no, that they should get to their seats. However, he then took a few more steps and started to fall to the ground. She lowered him slowly to the ground (does not appear to have struck his head), and within a few seconds, he had about 1 minute's worth of generalized tonic/clonic behavior. When EMS arrived, he was awake, calm, but confused. In the ambulance to the hospital, he had an IV inserted and became very combative and aggressive. In the ER, he was given Ativan, Haldol, and Benadryl and then intubated for airway protection. Principal Diagnosis seizure like activity canabis positive tox screen Discharge Exam The patient appeared stable Vital signs as documented. pulmonary mechanics appear unlabored Neurologic exam is alert and oriented, no focal loss of strength or sensation Skin is without bruises or rashes Psychologically is without concerns for anxiety or depression. Discharge Data Allergies Allergy/AdvReac Type Severity Reaction Status Date / Time No Known Allergies Allergy Unverified 07/15/22 12:56 Consultations 07/15/22 12:53 ED Decision to Admit Stat 07/15/22 13:36 Consult Neurology Routine 07/15/22 15:09 Consult [employer] Routine Ordered Studies 07/15/22 11:36 CT head/brain wo con Stat 07/15/22 12:04 CT cervical spine wo con Stat 07/15/22 13:07 MRI Brain [MR brain seizure wo/w con] Stat Hospital Course (1) Seizure: First episode. No family hx of seizure, though son did pass away from a brain tumor (unk type). - Intubated in ER for combativeness, then airway protection -> Admit to ICU extubated now awake and alert no residual issues - MRI brain seizure protocol- unremarkable MRI of the brain - UDS canabis and benzodiazepine - EEG negative for epileptogenic focus -Neurology recommends starting on Keppra 500mg bid, no driving until discussion with family doctor and referral to neurology in home area - Discussed with ICU and Neurology attending, agree to discharge to home Total Time Total Time Spent Total Time Spent (In Minutes): It required greater than 30 minutes to prepare this patient for discharge Discharge Plan Discharge Items Patient Disposition: Home - Self-Care Reason For Visit: ALTERED MENTAL STATUS; POSS. SEIZURE Discharge Diagnosis: seizure like activity Activity: Per Instructions section Activity Comment: no driving until cleared by family doctor Non-emergency contact: Primary Care Provider Call non-emergency contact if: your symptoms worsen Follow-up/Referrals: PCP,NO [Primary Care Provider] - Diet: Regular Addtl Attending Provider Instructions: please do not drive until you speak to your family doctor take Keppra as a precaution until you have further evaluation at your home medical providers please do not use alcohol or other substances Pending Studies at Discharge: No Stand-Alone Forms: My [employer], Smoking Cessation Medications and DC Order Prescriptions: New levetiracetam [Keppra] 500 mg tablet 500 mg PO BID Qty: 60 0RF Discharge Orders: Discharge Order (Routine); Ordered 07/16/22 Ordered By: Dariusz Harkins/Other Patient Handouts: Seizure New Unk Cause Adult Admission Data Admit Date/Time: 07/15/22 13:09 Attending Provider: Dariusz Stevens Admit Provider: Dariusz Stevens Primary Care Provider: PCP,NO Other Providers: Oneil Mora ; Miguel Huffman ; Oneil Rader Other Interventions: Discharge Summary Assessment (RN) Last Done: 07/16/22 13:12 Coding Level of Care Code D/C DAY MANAGEMENT >30 MINS Diagnoses Seizure R56.9
[2022-07-17 06:43] LABS: Estimated Average Glucose 117 mg/dl; Hemoglobin A1C 5.7 % (4.5-5.6)
[2022-07-19 08:02] LABS: 7-Aminoclonaz, Confirm NEGATIVE ng/mL (<25); Hydro-Alp Ur, GC/MS NEGATIVE ng/mL (<25); Hydroxyethylflurazepam, Conf NEGATIVE ng/mL (<50); Hydroxymidazolam Ur, GC/MS 615 ng/mL (<50); Hydroxytriazolam NEGATIVE ng/mL (<50); Lorazepam, Ur GC/MS NEGATIVE ng/mL (<50); Marijuana Quant, GCMS Urine 829 ng/mL (<5); Nordiazepam, Confirm NEGATIVE ng/mL (<50); Oxazepam Ur, GC/MS NEGATIVE ng/mL (<50); Temazepam, Confirm NEGATIVE ng/mL (<50)
== END 2022-07-16 15:53 | disposition home or self-care (01) ==
LOC: ED 11:13 → 1E 13:09 → SUATTDRO 13:09 → INTOOBSV 13:09 → 1E 14:37